=== PATIENT | female | born 1960 | race Caucasian/White ===

== ENCOUNTER 2018-07-28 12:28 | Day surgery (SDC) | payer BC ==
[2018-07-28] MEDS ORDERED: BUPIVACAINE 0.5% 30 ML SDV ONE ×2 (14:01→14:02)
[2018-07-28] MEDS ORDERED: POLYMYXIN B SULFATE 500,000 UNIT/10 ML SYR IRR ONE (14:01)
[2018-07-28] MEDS ORDERED: BACITRACIN 50,000 UNITS/10 ML SYR IRR ONE (14:01)
[2018-07-28] MEDS ORDERED: LIDOCAINE 1% 2 ML INJ ONE (14:12)
[2018-07-28] MEDS ORDERED: ceFAZolin 2 GM/DEXTROSE 100 ML IV ONE (14:18)
--- NOTE | 2018-07-28 14:28 | PDHPUP ---
History & Physical Update H&P update statement: This history and physical update is based on an assessment of the patient which was completed after admission or registration (within 24 hours), but prior to the surgery/procedure. H&P update: H&P reviewed & patient examined, no change in patient's condition since H&P completed
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
[2018-07-28] MEDS ORDERED: PROPOFOL/EMULSION 500 MG/50 ML BOTTLE IV ONE ×2 (14:45→15:19)
[2018-07-28] MEDS ORDERED: MIDAZOLAM 2 MG/2 ML VIAL ONE (14:45)
[2018-07-28] MEDS ORDERED: ONDANSETRON 4 MG/2 ML VIAL ONE (14:46)
[2018-07-28] MEDS ORDERED: METOCLOPRAMIDE 10 MG/2 ML VIAL ONE (14:46)
[2018-07-28] MEDS ORDERED: DEXAMETHASONE 4 MG/ML VIAL ONE (14:46)
[2018-07-28] MEDS ORDERED: OXYCODONE/APAP 5/325 TAB PO PRN (15:41)
[2018-07-28] MEDS ORDERED: LR 500 ML IV PRN (15:43)
[2018-07-28] MEDS ORDERED: NALOXONE HCL 0.4 MG/ML INJ IVP PRN (15:43)
[2018-07-28] MEDS ORDERED: fentaNYL 100 MCG/2 ML INJ IVP PRN (15:43)
--- NOTE | 2018-07-28 15:44 | POSTANESTH ---
Post Anesthetic Evaluation Cardiovascular Status: Normal, Stable Respiratory Status: Normal, Stable Level of Consciousness/Mental Status: Can Participate in Eval Pain Control: Adequate, Prn Tx Ordered Nausea/Vomiting Control: Adequate, Prn Tx Ordered Complications Possibly Related to Anesthesia: None Noted
[2018-07-28 17:25] VITALS: BP 139/82
--- NOTE | 2018-07-29 13:36 | GOP ---
[f rep st] OPERATIVE REPORT DATE OF OPERATION: 07/28/2018 SURGEON: Ruben Nobles DPM [employer]ING [employer]EM[employer]: None. ANESTHESIA: MAC with local 20 mL 0.5% Marcaine plain. PREOPERATIVE DIAGNOSIS: 1. Hallux rigidus, right foot. 2. Transient synovitis, right foot. POSTOPERATIVE DIAGNOSIS: 1. Hallux rigidus, right foot. 2. Transient synovitis, right foot. PROCEDURE PERFORMED: 1. Cheilectomy 1st MPJ, right foot. 2. Arthrocentesis, right foot. FINDINGS: Consistent with diagnosis. ESTIMATED BLOOD LOSS: Zero. DESCRIPTION OF PROCEDURE: After identification, the patient was brought in the operating room, place d on the operating table in the supine position. Following IV sedation, local anesthesia was obtaine d around the patient's right foot utilizing a total of 20 mL 0.5% Marcaine plain. The foot was then scrubbed, prepped and draped in the usual aseptic manner. A pneumatic ankle tourniquet was placed ar ound the patient's right ankle with ample padding. An Esmarch bandage was utilized to exsanguinate t he patient's right lower extremity. The pneumatic ankle tourniquet was then inflated. Attention was directed to the dorsal medial aspect of the patient's right foot where a 4 cm linear lo ngitudinal incision was made over the dorsal medial aspect of the 1st metatarsophalangeal joint media l and parallel to the tendon of the extensor hallucis longus. This incision was deepened through the subcutaneous tissue with care being taken to retract all vital, neural, and vascular structures. Bl eedings were ligated and cauterized as necessary. Incision was deepened through the subcutaneous tis sulaiman to the level of the joint capsule where a linear capsulotomy was performed. Capsular structures were reflected medially and laterally, thus exposing the 1st metatarsophalangeal joint at the operati ve site. A McGlamry elevator was inserted from medial to lateral in the 1st metatarsophalangeal join t in between the 1st metatarsal site and the sesamoid apparatus to serve as a release of adhesions. Upon completion of this release, the joint is noted to move more freely. Attention was then directed to the 1st metatarsal head where there is bone spur formation medial, lateral and dorsally. These b one spurs were sharply excised with a sagittal saw and passed from the operative field. All remainin g rough edges were then smoothed with a bone rasp and bone jadiel. The incision was then flushed with normal sterile saline solution. Capsular structures were reapprox imated utilizing 2-0 Vicryl. Subcutaneous tissue was reapproximated with interrupted 3-0 Vicryl. Th e skin was reapproximated using 5-0 Vicryl in a running subcuticular suture technique. 4 mg dexameth asone was then injected into the 1st metatarsophalangeal joint. The incision site was then dressed w ith Steri-Strips, Arshad silk, 4 x 4 gauze, Webril, Lianne, Frantz bandage. The patient was transported t o the postoperative recovery area with vital signs stable and vascular status intact to the right [facility] t. The patient tolerated the procedure and anesthesia well. HEMOSTASIS: Right pneumatic ankle tourniquet inflated to 250 mmHg for 24 minutes. MATERIALS: 2, 3, 5-0 Vicryl. INJECTABLES: 4 mg dexamethasone. CONDITION: Stable. /[id number]/MODL
== END 2018-07-28 17:08 | disposition home or self-care (01) ==
LOC: FSGY 12:28
PROVIDERS: ATTEND Podiatrist
PROC: 0SGM0JZ Fusion of Right Metatarsal-Phalangeal Joint with Synthetic Substitute, Open Approach (ICD-10-PCS; principal; 2018-07-28 14:15)
PROC: 0SNM0ZZ Release Right Metatarsal-Phalangeal Joint, Open Approach (ICD-10-PCS; principal; 2018-07-28 14:15)
DX: M20.21 Hallux rigidus, right foot (principal); M67.371 Transient synovitis, right ankle and foot
CPT/HCPCS: C1713; J0690; J1100; J2250; J2405; J2704; J2765